=== PATIENT | female | born 1985 | race African-American/Black ===

== ENCOUNTER 2016-08-17 17:19 | Emergency (ER) | payer OTHER ==
[2016-08-17 16:47] LABS: ASCORBIC ACID (UR NOT ORDER) NEG (NEG); BILIRUBIN, URINE NEGATIVE (NEG); ER URINALYSIS TAT 0 Hrs 15 Mins; KETONE, URINE NEGATIVE (NEG); LEUKOCYTE ESTERASE(NOT OR MOD (NEG); NITRITE (URINE) NEG (NEG); WBC (NOT ORDERED) (RFLEX) 56 (0-5)
== END 2016-08-17 18:01 | disposition home or self-care (01) ==
LOC: ER 17:19
PROVIDERS: Physician Assistant
DX: N39.0 Urinary tract infection, site not specified (principal); F17.200 Nicotine dependence, unspecified, uncomplicated
CPT/HCPCS: 81001; 84703; 87077; 87086; 87186; 99284

== ENCOUNTER 2016-09-18 23:54 | Emergency (ER) | payer OTHER ==
[2016-09-19 00:35] LABS: BASOPHILS 0.2 %; BASOPHILS ABSOLUTE 0.02 10/3/uL (0.0-0.16); EOSINOPHILS 1.1 %; EOSINOPHILS ABSOLUTE 0.11 10/3/uL (0.0-0.53); ER CBC TAT 0 Hrs 07 Mins; HEMATOCRIT 35.1 % (36.0-48.0); HEMOGLOBIN 12.2 g/dL (12.0-16.0); IMMATURE GRANULOCYTES 0.2 %; IMMATURE GRANULOCYTES ABSOLUTE 0.02 10/3/uL (0.0-0.11); LYMPHOCYTES 19.6 %; LYMPHOCYTES ABSOLUTE 1.98 10/3/uL (0.67-4.30); MEAN CORPUS HGB CONC 34.8 g/dL (32.0-36.0); MEAN CORPUSCULAR HEMOGLOB 32.8 pg (26.0-34.0); MEAN CORPUSCULAR VOLUME 94.4 fL (80-100); MONOCYTES 4.2 %; MONOCYTES ABSOLUTE 0.42 10/3/uL (0.21-1.20); NEUTROPHILS 74.7 %; NEUTROPHILS ABSOLUTE 7.54 10/3/uL (2.02-8.40); PLATELET COUNT 271 10/3/uL (150-400); RBC DISTRIBUTION WIDTH 12.6 % (12.0-16.0); RED CELL COUNT 3.72 10/6/uL (4.0-5.6); WHITE BLOOD CELLS 10.1 10/3/uL (4.5-10.5)
[2016-09-19 00:36] LABS: MANUAL DIFF NO %
[2016-09-19 00:47] LABS: ALBUMIN 3.7 G/DL (3.5-5.0); ALKALINE PHOSPHATASE 54 U/L (45-117); BUN (BLOOD UREA NITROGEN) 15 MG/DL (6-23); CHLORIDE, SERUM 110 MMOL/L (96-112); CO2 (CARBON DIOXIDE) 27 MMOL/L (24-34); CREATININE 0.76 MG/DL (0.55-1.02); GFR AFRICAN AMERICAN 123 ML/MIN (>=60); GFR NON AFRICAN AMERICAN 106 ML/MIN (>=60); GLOBULIN 3.8 G/DL (2.5-4.1); GLUCOSE, SERUM 101 MG/DL (60-99); SGOT(AST) 12 U/L (5-40); SGPT(ALT) 15 U/L (5-65); SODIUM, SERUM 143 MMOL/L (135-148); TOTAL BILIRUBIN 0.2 MG/DL (0-1.2); TOTAL PROTEIN 7.5 G/DL (6.0-8.5)
[2016-09-19 01:12] LABS: ASCORBIC ACID (UR NOT ORDER) NEG (NEG); BILIRUBIN, URINE NEGATIVE (NEG); ER URINALYSIS TAT 0 Hrs 00 Mins; KETONE, URINE NEGATIVE (NEG); LEUKOCYTE ESTERASE(NOT OR MOD (NEG); NITRITE (URINE) NEG (NEG); WBC (NOT ORDERED) (RFLEX) 70 (0-5)
[2016-09-19 02:45] LABS: CHLAMYDIA TRACH PCR NOT DETECTED (NOT DETEC); GC PCR NOT DETECTED (NOT DETECT); SOURCE: FEMALE URINE
== END 2016-09-19 02:08 | disposition home or self-care (01) ==
LOC: ER 23:54
PROVIDERS: Nurse Practitioner
DX: N39.0 Urinary tract infection, site not specified (principal); N93.9 Abnormal uterine and vaginal bleeding, unspecified; F17.200 Nicotine dependence, unspecified, uncomplicated
CPT/HCPCS: 36415; 80053; 81001; 84703; 85025; 86850; 86900; 86901; 87086; 87491; 87591; 96372; 99284; J1885